=== PATIENT | male | born 1960 | race Caucasian/White ===

== ENCOUNTER 2017-03-23 21:06 | Emergency (ER) | payer OTHER ==
--- NOTE | ~2017-03-23 | CT2 ---
[facility] A Service of [facility] RADIOLOGY TEXT RESULTS PATIENT: KOBY DORMAN LOCATION: [facility] : 58 UNIT #: [id number] AGE: [address]: Abhi Ledezma DO SEX: M ORDER DR: [id number] [facility]. [place], [place] [address] [id number] MR#: [id number] Acc #: [id number] NAME: KOBY DORMAN : 1960 SEX: M STUDY DATE/TIME: 03/24/2017 1:47 UNIT: [facility] ROOM: STUDY DESCRIPTION: CT Abd and Pelv W Cont Attending Physician: Abhi Ledezma D.O. Ordering Physician: Abhi Ledezma D.O. Primary Care Physician: Jonnie Rueda M.D. MEDICAL IMAGING REPORT This report is preliminary unless electronic signature is present EXAM CT abdomen and pelvis with contrast INDICATION Nausea, vomiting, diarrhea since last night. PROCEDURE Contrast-enhanced CT of the abdomen and pelvis. This CT examination was performed with one or more of the following radiation dose reduction techniques: automatic exposure control, adjustment of mA and/or kV according to patient size, and iterative reconstruction. COMPARISON None. FINDINGS ABDOMEN WITH CONTRAST: Included lung bases are clear. Liver, spleen unremarkable. 3 mm nonobstructing calculus in the right kidney. Adrenal glands, pancreas unremarkable. There is a 7 mm calculus in the gallbladder but no evidence for inflammation. The bowel loops are nondilated. Appendix is normal. PELVIS WITH CONTRAST: No pelvic mass or fluid. No aggressive appearing bone lesion. IMPRESSION 1. No acute findings. Normal appendix. 2. Uncomplicated cholelithiasis. Dictated by... Randy Barrett M.D. [facility] A Service of [facility] RADIOLOGY TEXT RESULTS PATIENT: KOBY DORMAN LOCATION: [facility] : 58 UNIT #: [id number] AGE: [address]: Hottman,Abhi M DO SEX: M ORDER DR: THIS IS AN ELECTRONICALLY VERIFIED REPORT Randy Barrett M.D. at 03/24/2017 10:09 PM HOWIE/mark TD: 03/24/2017 09:35 JOB #: [id number] MEDICAL IMAGING REPORT Page 1 of 1 COPY
--- NOTE | ~2017-03-23 | EKG ---
PATIENT: KOBY DORMAN UNIT #: [id number] Ventricular Rate: 73 BPM Atrial Rate: 73 BPM P-R Interval: 174 ms QRS Duration: 106 ms Q-T Interval: 368 ms QTC Calculation(Bezet): 405 ms P [place]: 46 degrees Calculated R [place]: -32 degrees Calculated T [place]: 49 degrees Diagnosis Line: Normal sinus rhythm Diagnosis Line: Left axis deviation Diagnosis Line: Abnormal ECG Diagnosis Line: No previous ECGs available Diagnosis Line: Confirmed by DALLAS CANTU MD ([id number]) on Diagnosis Line: 03/24/2017 2:01:25 PM INTERPRETING MD: ALONDRA CEDENO
[~2017-03-23 21:06] MED LIST: ALEVE220 M1; CLARITIN D; CLARITIN10 M3 PO; MULTIPLE VITAMI1 T11 PO; NO MEDICATIONS; ZOFRAN PO
[2017-03-23 23:20] LABS: BASOPHIL% 0.1 % (0-2.5); EOSINOPHIL% 0.1 % (0.0-7.0); HEMOGLOBIN 14.9 gm/dL (13.0-16.0); LYMPHOCYTE# 0.6 X10e3 (1.0-3.5); LYMPHOCYTE% 6.1 % (17.0-45.0); MEAN CELL VOLUME 89.8 FL (83-96); MEAN CORPUSCULAR HEMOGLOBIN 29.8 PG (28-34); MEAN CORPUSCULAR HGB CONC 33.2 g/dL (30-36); MEAN PLATELET VOLUME 9.4 FL (6.5-11.5); MONOCYTE# 0.4 X10e3 (0-1.0); MONOCYTE% 4.1 % (3.0-12.0); NEUTROPHIL% 89.6 % (40-75); PLATELET COUNT 169 X10e3 (140-420); RED BLOOD COUNT 5.01 X10e (3.90-5.60); RED CELL DISTRIBUTION WIDTH 14.2 % (11.0-15.5)
[2017-03-23 23:24] LABS: DIFF IND NO
[2017-03-23 23:26] LABS: POC - CKMB <1.0 ng/mL (0.0-7.9); POC - TROPONIN <0.05 ng/mL (<=0.05)
[2017-03-23 23:48] LABS: ALBUMIN SERUM 4.1 g/dL (3.5-5.0); BILIRUBIN, DIRECT 0.1 mg/dL (0.0-0.2); BILIRUBIN,INDIRECT 0.4 mg/dL (0.0-0.9); BILIRUBIN,TOTAL 0.5 mg/dL (0.2-2.0); BUN/CREATININE RATIO 21.11; CALCIUM SERUM 9.1 mg/dL (8.4-10.2); CREATININE SERUM 0.9 mg/dL (0.6-1.4); GLOM FILT RATE Estimated 94.5 mL/min (>60); PROTEIN TOTAL SERUM 7.8 g/dL (6.0-8.3)
[2017-03-24 03:22] LABS: URINE SOURCE CLEAN CATCH
[2017-03-24 03:28] LABS: URINE APPEARANCE CLEAR; URINE BILIRUBIN NEG (NEG); URINE BLOOD TRACE (NEG); URINE COLOR YELLOW; URINE GLUCOSE NEG (NEG); URINE KETONE NEG (NEG); URINE LEUKOCYTE ESTERASE NEG (NEG); URINE NITRATE NEG (NEG); URINE PROTEIN NEG (NEG); URINE SPECIFIC GRAVITY 1.098 (1.003-1.035); URINE UROBILINOGEN 0.2 MG/DL (NEG)
[2017-03-24 03:31] LABS: URBCS1 AUWI 0-2 /[HPF] (0-2); URINE BACTERIA AUWI NEG (NEGATIVE); URINE SQUAMOUS EPITHELIAL CELL NONE SEEN /[HPF]; UWBCS1 AUWI 0-2 (0-5)
[2017-03-24 03:33] LABS: CULTURE INDICATED? NO
== END 2017-03-24 04:30 | disposition home or self-care (01) ==
LOC: CED 21:06
PROVIDERS: Emergency Medicine
DX: K80.20 Calculus of gallbladder without cholecystitis without obstruction (principal); E11.9 Type 2 diabetes mellitus without complications; Z98.890 Other specified postprocedural states; Z79.899 Other long term (current) drug therapy
CPT/HCPCS: 36415; 74177; 80048; 80076; 81003; 82553; 82947; 83690; 84484; 85025; 93005; 96361; 96374; 96375; 99284; J2270; J2405; Q9967